=== PATIENT | male | born 1955 | race Caucasian/White ===

== ENCOUNTER 2019-11-13 10:11 | Outpatient (CLI) | payer BC, SELFPAY ==
[2019-11-13 10:28] LABS: Basophils Percent Auto 0.4 % (0.2-1.2); Eosinophils Absolute Auto 0.4 K/mm3 (0-0.3); Eosinophils Percent Auto 3.8 % (0-4.4); Hematocrit 44.5 % (42.0-52.0); Hemoglobin 14.3 g/dL (14.0-18.0); Immature Granulocyte Absolute 0.06 K/mm3 (0.00-0.031); Immature Granulocyte Percent A 0.6 % (0-0.5); Lymphocytes Absolute Auto 1.49 K/mm3 (0.9-3.2); Lymphocytes Percent Auto 15.8 % (18.3-44.2); Mean Corpuscular HGB Conc 32.1 g/dl (32-36); Mean Corpuscular Hemoglobin 28.7 pg (26-34); Mean Corpuscular Volume 89.2 fl (80-100); Mean Platelet Volume 8.9 fl (7.4-10.4); Monocytes Absolute Auto 0.7 K/mm3 (0.1-0.6); Monocytes Percent Auto 7.4 % (2.6-8.5); Neutrophils Absolute Auto 6.8 K/mm3 (1.3-6.7); Platelet Count Result 217 k/mm3 (150-375); Red Blood Count 4.99 M/mm3 (4.6-6.20); White Blood Count 9.4 K/mm3 (4.5-10.0)
[2019-11-13 10:39] LABS: Hemoglobin A1C 7.7 % (<5.7)
[2019-11-13 10:47] LABS: Alanine Aminotransferase 45 U/L (4-50); Albumin Level 4.3 g/dL (3.5-5.1); Alkaline Phosphatase 66 U/L (38-126); Aspartate Amino Transferase 41 U/L (17-59); Bilirubin,Total 0.7 mg/dL (0.2-1.3); Blood Urea Nitrogen 17 mg/dL (9-20); Calcium 9.4 mg/dL (8.4-10.2); Carbon Dioxide 31 mmol/L (22-30); Chloride 97 mmol/L (98-107); Cholesterol 164 mg/dL (0-200); Estimated Glomerular Filt Rate > 60; Glucose 178 mg/dL (75-110); HDL Direct 41 mg/dL; Potassium 5.1 mmol/L (3.4-5.0); Sodium 138 mmol/L (137-145); Triglycerides 78 mg/dL (<150)
[2019-11-13 10:58] LABS: LDL Cholesterol Direct 103 mg/dL
== END 2019-11-13 10:12 | disposition home or self-care (01) ==
LOC: ANHLAB 10:13
PROVIDERS: PCP Family Medicine; Visit Provider Nurse Practitioner Family
DX: E11.42 Type 2 diabetes mellitus with diabetic polyneuropathy (principal)
CPT/HCPCS: 36415; 80053; 80061; 83036; 85025

== ENCOUNTER 2020-01-16 10:42 | Outpatient (CLI) | payer BC, SELFPAY ==
[2020-01-16 11:12] LABS: Basophils Percent Auto 0.4 % (0.2-1.2); Eosinophils Absolute Auto 0.4 K/mm3 (0-0.3); Hematocrit 43.3 % (42.0-52.0); Hemoglobin 14.8 g/dL (14.0-18.0); Immature Granulocyte Absolute 0.05 K/mm3 (0.00-0.031); Immature Granulocyte Percent A 0.6 % (0-0.5); Lymphocytes Absolute Auto 1.42 K/mm3 (0.9-3.2); Lymphocytes Percent Auto 15.6 % (18.3-44.2); Mean Corpuscular HGB Conc 34.2 g/dl (32-36); Mean Corpuscular Hemoglobin 29.8 pg (26-34); Mean Corpuscular Volume 87.1 fl (80-100); Mean Platelet Volume 8.7 fl (7.4-10.4); Monocytes Absolute Auto 0.5 K/mm3 (0.1-0.6); Monocytes Percent Auto 5.9 % (2.6-8.5); Neutrophils Absolute Auto 6.7 K/mm3 (1.3-6.7); Neutrophils Percent Auto 73.5 % (45.5-73.1); Platelet Count Result 204 k/mm3 (150-375); Red Blood Count 4.97 M/mm3 (4.6-6.20); Red Cell Distribution Width 13.3 % (11.5-14.5); White Blood Count 9.1 K/mm3 (4.5-10.0)
[2020-01-16 11:20] LABS: Hemoglobin A1C 7.1 % (<5.7)
[2020-01-16 11:25] LABS: Alanine Aminotransferase 39 U/L (4-50); Albumin Level 4.2 g/dL (3.5-5.1); Alkaline Phosphatase 63 U/L (38-126); Aspartate Amino Transferase 37 U/L (17-59); Bilirubin,Total 0.6 mg/dL (0.2-1.3); Blood Urea Nitrogen 14 mg/dL (9-20); Calcium 9.2 mg/dL (8.4-10.2); Carbon Dioxide 31 mmol/L (22-30); Chloride 103 mmol/L (98-107); Cholesterol 168 mg/dL (0-200); Estimated Glomerular Filt Rate > 60; Glucose 127 mg/dL (75-110); HDL Direct 38 mg/dL; Sodium 138 mmol/L (137-145); Triglycerides 92 mg/dL (<150)
[2020-01-16 11:36] LABS: LDL Cholesterol Direct 110 mg/dL
[2020-01-16 11:43] LABS: Creatinine Urine 175.7 mg/dL
[2020-01-16 11:48] LABS: MALB Creatinine Ratio 8.1 mg/g (0-30); Microalbumin Urine Random 14.3 mg/L (0-16.7)
== END 2020-01-16 10:43 | disposition home or self-care (01) ==
PROVIDERS: PCP Family Medicine; Visit Provider Family Medicine
DX: E11.65 Type 2 diabetes mellitus with hyperglycemia (principal); I10 Essential (primary) hypertension
CPT/HCPCS: 36415; 80053; 80061; 82043; 83036; 85025

== ENCOUNTER 2020-07-20 10:12 | Outpatient (CLI) | payer BC, SELFPAY ==
[2020-07-20 10:53] LABS: Basophils Percent Auto 0.4 % (0.2-1.2); Eosinophils Absolute Auto 0.4 K/mm3 (0-0.3); Hematocrit 45.3 % (42.0-52.0); Hemoglobin 14.9 g/dL (14.0-18.0); Immature Granulocyte Absolute 0.06 K/mm3 (0.00-0.031); Immature Granulocyte Percent A 0.7 % (0-0.5); Lymphocytes Absolute Auto 1.24 K/mm3 (0.9-3.2); Lymphocytes Percent Auto 14.5 % (18.3-44.2); Mean Corpuscular HGB Conc 32.9 g/dl (32-36); Mean Corpuscular Hemoglobin 30.1 pg (26-34); Mean Corpuscular Volume 91.5 fl (80-100); Mean Platelet Volume 8.8 fl (7.4-10.4); Monocytes Absolute Auto 0.5 K/mm3 (0.1-0.6); Monocytes Percent Auto 6.2 % (2.6-8.5); Neutrophils Absolute Auto 6.3 K/mm3 (1.3-6.7); Neutrophils Percent Auto 73.2 % (45.5-73.1); Platelet Count Result 179 k/mm3 (150-375); Red Blood Count 4.95 M/mm3 (4.6-6.20); Red Cell Distribution Width 12.7 % (11.5-14.5); White Blood Count 8.6 K/mm3 (4.5-10.0)
[2020-07-20 11:04] LABS: Hemoglobin A1C 6.8 % (<5.7)
[2020-07-20 11:12] LABS: Alanine Aminotransferase 36 U/L (4-50); Albumin Level 4.4 g/dL (3.5-5.1); Alkaline Phosphatase 49 U/L (38-126); Anion Gap 8 mmol/L (8-16); Aspartate Amino Transferase 37 U/L (17-59); Bilirubin,Total 0.7 mg/dL (0.2-1.3); Blood Urea Nitrogen 15 mg/dL (9-20); Calcium 8.9 mg/dL (8.4-10.2); Carbon Dioxide 30 mmol/L (22-30); Chloride 101 mmol/L (98-107); Estimated Glomerular Filt Rate > 60; Glucose 137 mg/dL (75-110); Potassium 4.5 mmol/L (3.4-5.0); Sodium 139 mmol/L (137-145)
== END 2020-07-20 10:13 | disposition home or self-care (01) ==
PROVIDERS: PCP Family Medicine; Visit Provider Physician Assistant
DX: G62.9 Polyneuropathy, unspecified (principal); I10 Essential (primary) hypertension; E11.42 Type 2 diabetes mellitus with diabetic polyneuropathy
CPT/HCPCS: 36415; 80053; 83036; 85025

== ENCOUNTER → 2020-12-03 11:18 | Outpatient (CLI) | payer BC, SELFPAY ==
[2020-12-04 08:28] LABS: SARS-CoV-2 RNA PCR Positive
== END ==
PROVIDERS: PCP Family Medicine; Visit Provider Physician Assistant
DX: U07.1 COVID-19 (principal)
CPT/HCPCS: C9803; U0003; U0005

== ENCOUNTER 2022-05-04 08:47 | Outpatient (CLI) | payer MEDICARE, SELFPAY ==
--- NOTE | ~2022-05-04 | XR_ITS ---
XR foot LT min 3V DATE: 05/04/2022 10:01 INDICATION: Pain at right metatarsals TECHNIQUE: 3 views COMPARISON: None FINDINGS: Mild osteoarthritis at the first metatarsophalangeal joint. No fracture, dislocation, periosteal reaction or bone destruction. IMPRESSION: Mild osteoarthritis at first metatarsophalangeal joint Reviewed, dictated and finalized at location B.
--- NOTE | ~2022-05-04 | XR_ITS ---
XR foot RT min 3V DATE: 05/04/2022 10:01 INDICATION: Right foot metatarsal area pain TECHNIQUE: 3 views COMPARISON: None FINDINGS: Mild osteoarthritis at the first metatarsophalangeal joint. No recent fracture or dislocation, periosteal reaction or bone destruction. Slight posterior and plantar calcaneal enthesopathy. IMPRESSION: Mild osteoarthritis at first metatarsophalangeal joint Reviewed, dictated and finalized at location B.
--- NOTE | 2022-05-04 08:52 | EST_ITS ---
Patient Info Name: Bryan Serrano Age: 67 years : 1955 Gender: Male Ht: 74 in Wt: 295 lbs BSA: 2.69 m2 Exam Date: 05/04/2022 9:10 AM Exam Location: [facility] Stress Patient Status: Outpatient Admit Date: 05/04/2022 Staff Ordering Physician: Aydin Martins MD Attending Provider: Aydin Martins MD Exercise Technologist: Zuleyka Barajas RDCS Exercise Physician: Jose Del Angel DO Exam Type: CA stress test treadmill Study Info Indications R06.09 - Other forms of dyspnea A treadmill exercise stress test was performed. Summary 1. 1. Negative Octavio exercise stress test for ischemic ST changes by ECG criteria. 2. 2. Poor functional capacity, achieving 4 METs of workload. 3. 3. Baseline hypertension with hypertensive response to exercise. 4. 4. Rapid HR response to exercise. 5. 5. Appropriate HR recovery at 1 minute post exercise. 6. 6. No imaging with stress testing. 7. 7. Patient informed of the above results. Protocol: Octavio Stress ECG Details Stage: REST Duration (min): 3 min : 22 sec Speed (mph): 0.0 Grade (%): 0 HR (bpm): 112 SBP (mmHg): 143 DBP (mmHg): 71 METS: --- Stage: REST Duration (min): 6 min : 46 sec Speed (mph): 0.0 Grade (%): 0 HR (bpm): 110 SBP (mmHg): 143 DBP (mmHg): 71 METS: --- Stage: STAGE 1 Duration (min): 1 min : 0 sec Speed (mph): 1.7 Grade (%): 10 HR (bpm): 127 SBP (mmHg): 143 DBP (mmHg): 71 METS: --- Stage: STAGE 1 Duration (min): 2 min : 0 sec Speed (mph): 1.7 Grade (%): 10 HR (bpm): 139 SBP (mmHg): 143 DBP (mmHg): 71 METS: --- Stage: STAGE 1 Duration (min): 3 min : 0 sec Speed (mph): 1.7 Grade (%): 10 HR (bpm): 145 SBP (mmHg): 189 DBP (mmHg): 54 METS: --- Stage: RECOVERY Duration (min): 0 min : 59 sec Speed (mph): 0.0 Grade (%): 0 HR (bpm): 142 SBP (mmHg): 216 DBP (mmHg): 75 METS: --- Stage: RECOVERY Duration (min): 1 min : 59 sec Speed (mph): 0.0 Grade (%): 0 HR (bpm): 122 SBP (mmHg): 216 DBP (mmHg): 75 METS: --- Stage: RECOVERY Duration (min): 2 min : 59 sec Speed (mph): 0.0 Grade (%): 0 HR (bpm): 115 SBP (mmHg): 190 DBP (mmHg): 72 METS: --- Stage: RECOVERY Duration (min): 3 min : 59 sec Speed (mph): 0.0 Grade (%): 0 HR (bpm): 116 SBP (mmHg): 190 DBP (mmHg): 72 METS: --- Stage: RECOVERY Duration (min): 4 min : 59 sec Speed (mph): 0.0 Grade (%): 0 HR (bpm): 110 SBP (mmHg): 152 DBP (mmHg): 71 METS: --- Stage: RECOVERY Duration (min): 5 min : 59 sec Speed (mph): 0.0 Grade (%): 0 HR (bpm): 111 SBP (mmHg): 152 DBP (mmHg): 71 METS: --- Stage: RECOVERY Duration (min): 6 min : 45 sec Speed (mph): 0.0 Grade (%): 0 HR (bpm): 109 SBP (mmHg): 144 DBP (mmHg): 71 METS: --- Rest HR: 110 bpm Peak HR:
== END 2022-05-04 08:48 | disposition home or self-care (01) ==
PROVIDERS: PCP Family Medicine; Visit Provider Family Medicine
DX: M77.41 Metatarsalgia, right foot (principal); M19.072 Primary osteoarthritis, left ankle and foot; M19.071 Primary osteoarthritis, right ankle and foot; R06.09 Other forms of dyspnea
CPT/HCPCS: 73630; 93017

== ENCOUNTER 2022-07-12 15:53 | Emergency (ER) | payer MEDICARE, SELFPAY ==
--- NOTE | ~2022-07-12 | XR_ITS ---
EXAMINATION: XR foot RT min 3V DATE: 07/12/2022 16:18 INDICATION: Right foot pain TECHNIQUE: Dorsoplantar, lateral, and 2 oblique views of the right foot were obtained. COMPARISON: 05/04/2022 FINDINGS: There is moderate osteoarthritis at the first metatarsophalangeal joint and in multiple int erphalangeal joints. Bone alignment is normal. No fracture is identified. The soft tissues are unrema rkable. IMPRESSION: 1. No acute osseous abnormality. Reviewed, dictated and finalized at location A.
[2022-07-12 16:20] VITALS: BP 138/73; PULSE 97; RESP 20; TEMP 36.8; O2SAT 97
[2022-07-12 16:23] VITALS: BP 138/73; PULSE 97; RESP 20; TEMP 36.8; O2SAT 97
--- NOTE | 2022-07-12 17:39 | ED.LOWEXIN ---
HPI - Extremity Injury (Lower) General Chief Complaint: Extremity Injury, Lower Stated Complaint: Rt Foot Pain Due to Fall Source: patient Mode of arrival: ambulatory History of Present Illness HPI Narrative: This is a 67-year-old male who presented to urgent care with complaints of right great toe pain. According to patient he fell off a ladder on Sunday and woke up this morning with swollen red toe with pus drainage coming from the nailbed. Patient notes that he was unable to sleep last night due to pain. Patient has a history of diabetic spoke with patient's primary care physician before I&D completed. Patient will have to follow-up closely with his primary care physician to avoid a diabetic ulcer. Patient's primary care physician agreed to an I&D and to closely monitor patient's status. Patient has agreed to follow-up with his primary care physician after the procedure. The patient denies SOB, CP, palpitation, extremity numbness, lightheadedness, dizziness, constipation, diarrhea, chills, or fever. Related Data Home Medications Medication Instructions Recorded Confirmed metformin 500 mg tablet 500 mg PO BID 04/24/22 07/12/22 omeprazole 20 mg tablet,delayed 20 mg PO DAILY 04/24/22 07/12/22 release semaglutide 0.25 mg or 0.5 mg (2 0.25 mg subcut WEEKLY 04/24/22 07/12/22 mg/1.5 mL) subcutaneous pen injector (Ozempic) insulin degludec 200 unit/mL (3 200 unit subcut DAILY 07/12/22 07/12/22 mL) subcutaneous pen (Tresiba FlexTouch U-200 insulin) lisinopril 20 1 tablet PO DAILY 07/12/22 07/12/22 mg-hydrochlorothiazide 12.5 mg tablet Allergies Allergy/AdvReac Type Severity Reaction Status Date / Time Penicillins AdvReac Mild Rash Verified 07/12/22 16:20 Review of Systems Review of Systems: A 14 organ system Review of Systems was performed and pertinent positives included in the HPI, otherwise remaining ROS is negative. [facility] Past Medical History Medical History (Updated 07/12/22 @ 17:39 by QUAN Ragsdale-C) BMI 37.0-37.9, adult Chronic low back pain with bilateral sciatica Colon cancer screening COVID-19 (12/03/20) Dyspnea on exertion exercise stress test was negative for ischemia with poor functional capacity on 05/04/2022. Ganglion cyst of right foot GERD (gastroesophageal reflux disease) Hypersomnia Metatarsalgia of both feet X-ray of both feet on 05/04/2022 reveals mild osteoarthritis of the 1st MTP joint with small posterior calcaneal heel spurs on the right foot. Mixed hyperlipidemia Total cholesterol 188, triglycerides 95, HDL 56 and LDL 106 on 03/29/2021 Mood swings Neuropathy Nocturia Umbilical hernia Social History Social History Social History: Smoking status: Former smoker Tobacco type: cigarettes Second hand tobacco smoke exposure: No Smoking end date: 10/01/97 Alcohol intake: never Substance use: never Substance use type: does not use Gender identity (if verbalized by the patient): Male Sexual Orientation (if Verbalized by the Patient): Straight or Heterosexual Exam Narrative: GENERAL: This is a well-nourished, well-developed patient, in no apparent distress. HEAD: normocephalic, atraumatic. EYES: PERRL. Sclera clear/white. Vision is grossly intact. EARS: External ears normal, auditory canals clear and without drainage, TMs normal without perforation. Hearing grossly intact. NOSE: External nose normal with no obvious nasal discharge, nares without redness, no rhinorrhea. THROAT: Mucous membranes moist, posterior pharynx clear. NECK: Neck supple, non-tender without lymphadenopathy, masses or thyromegaly. CARDIOVASCULAR: Regular rate and rhythm without murmurs, gallops, or rubs. RESPIRATORY: Clear to auscultation. Breath sounds equal bilaterally. No wheezes, rales, or rhonchi. GASTROINTESTINAL: Abdomen soft, non-tender, nondistended. Bowel sounds are active. No hepato-splenomegaly, or
== END 2022-07-12 17:51 | disposition home or self-care (01) ==
PROVIDERS: Emergency Provider Nurse Practitioner; PCP Family Medicine
DX: M79.674 Pain in right toe(s) (principal); L03.031 Cellulitis of right toe; Z87.891 Personal history of nicotine dependence; Z86.16 Personal history of COVID-19; K21.9 Gastro-esophageal reflux disease without esophagitis; E78.2 Mixed hyperlipidemia; E11.9 Type 2 diabetes mellitus without complications
CPT/HCPCS: 10060; 73630; 99213; G0463

== ENCOUNTER 2022-08-20 15:46 | Emergency (ER) | payer MEDICARE, SELFPAY ==
--- NOTE | ~2022-08-20 | CT_ITS ---
EXAMINATION: CT abdomen pelvis wo con DATE: 08/20/2022 18:44 INDICATION: left flank pain TECHNIQUE: Computed tomography (CT) of the abdomen and pelvis was performed without intravenous contr ast. Automated exposure control and iterative reconstruction technique were employed. The dose-length product was 1151.69 mGy-cm. COMPARISON: None. FINDINGS: Lower thorax: Bibasilar scar/atelectasis. Liver: Diffusely fatty infiltrated and enlarged. Biliary/Gallbladder: Gallbladder is normal. No bile duct dilation. Pancreas: No mass or duct dilation. Spleen: Normal. Adrenals:No mass. Kidneys: No mass, stone, or hydronephrosis. GI tract: No small or large bowel dilation. Normal appendix. Extensive diverticulosis. Subtle pericol onic fat stranding along the anterior aspect of the proximal sigmoid in the left lower quadrant. Mesentery/Peritoneum: No ascites, mass, or free air. Retroperitoneum: No mass. Pelvis: Pelvic organs are within normal limits. Soft Tissues: Uncomplicated umbilical and bilateral inguinal fat-containing hernias. Bones: No acute osseous finding. IMPRESSION: Subtle perisigmoid inflammatory change in the left lower quadrant may reflect early/mild diverticulit is in the appropriate clinical context. Hepatomegaly and steatosis. Otherwise, no acute abdominopelvi c process detected Reviewed, dictated and finalized at location K. INGOT MOLDER IMPRESSION: Subtle perisigmoid inflammatory change in the left lower quadrant may reflect e jacobo/mild diverticulitis in the appropriate clinical context. Hepatomegaly and steatosis. Otherwise, no acute abdominopelvic process detected
--- NOTE | ~2022-08-20 | XR_ITS ---
EXAMINATION: XR chest 2V Exam Date/Time: 08/20/2022 16:10 RECREATION DIRECTOR HISTORY: shortness of breath, WITH STABBING PAIN TO CHEST Comparison: None available. RESULT: Lines, tubes, and devices: None. Lungs and pleura: Mild senescent change in left mid and lower lung atelectasis/scarring. Cardiomediastinal silhouette: Unremarkable. Other: No acute osseous or upper abdominal finding. IMPRESSION: No acute cardiopulmonary process. Reviewed, dictated and finalized at location K. EATION DIRECTOR
[2022-08-20 15:51] VITALS: BP 126/69; PULSE 114; RESP 18; TEMP 36.9; O2SAT 100
[2022-08-20 16:00] VITALS: BP 169/93; PULSE 104; RESP 20; O2SAT 100
[2022-08-20 16:04] VITALS: PULSE 108
--- NOTE | 2022-08-20 16:04 | ECG_ITS ---
Measurements Intervals [place] Rate: 108 P: 52 [place]: 153 QRS: -79 QRSD: 128 T: 31 QT: 327 QTc: 439 Interpretive Statements SINUS TACHYCARDIA RIGHT BUNDLE BRANCH BLOCK LEFT ANTERIOR FASCICULAR BLOCK ABNORMAL ECG NO PREVIOUS ECG AVAILABLE FOR COMPARISON Electronically Signed On 08-20-2022 17:06:35 BORDER INSPECTOR by Jose Del Angel D.O.
[2022-08-20 16:05] VITALS: O2SAT 96
--- NOTE | 2022-08-20 16:12 | PC.NURSE ---
Patient reports he started to feel short of breath around 1300 today while at [facility]. He reports he was cleaning up a little bit at [employer] when it started. Patient reports hx of a spontaneous collapsed lung when he was in his 20s.
[2022-08-20 16:14] LABS: Basophils Absolute Auto 0.1 K/mm3 (0.0-0.1); Basophils Percent Auto 0.3 % (0.2-1.2); Eosinophils Absolute Auto 0.4 K/mm3 (0-0.3); Eosinophils Percent Auto 2.8 % (0-4.4); Hematocrit 42.7 % (42.0-52.0); Hemoglobin 14.3 g/dL (14.0-18.0); Immature Granulocyte Absolute 0.11 K/mm3 (0.00-0.031); Immature Granulocyte Percent A 0.7 % (0-0.5); Lymphocytes Absolute Auto 2.03 K/mm3 (0.9-3.2); Lymphocytes Percent Auto 13.4 % (18.3-44.2); Mean Corpuscular HGB Conc 33.5 g/dl (32-36); Mean Corpuscular Volume 89.5 fl (80-100); Mean Platelet Volume 8.9 fl (7.4-10.4); Monocytes Percent Auto 6.3 % (2.6-8.5); Neutrophils Absolute Auto 11.6 K/mm3 (1.3-6.7); Neutrophils Percent Auto 76.5 % (45.5-73.1); Platelet Count Result 239 k/mm3 (150-375); Red Blood Count 4.77 M/mm3 (4.6-6.20); Red Cell Distribution Width 13.2 % (11.5-14.5); White Blood Count 15.2 K/mm3 (4.5-10.0)
[2022-08-20 16:30] LABS: Alanine Aminotransferase 34 U/L (6-50); Albumin Level 4.4 g/dL (3.5-5.1); Alkaline Phosphatase 91 U/L (38-126); Anion Gap 10 mmol/L (8-16); Aspartate Amino Transferase 35 U/L (17-59); Bilirubin,Total 0.5 mg/dL (0.2-1.3); Blood Urea Nitrogen 18 mg/dL (9-20); Calcium 9.4 mg/dL (8.4-10.2); Carbon Dioxide 26 mmol/L (22-30); Chloride 102 mmol/L (98-107); Estimated CRCL calculation 85 ml/min; Estimated Glomerular Filt Rate > 60; Glucose 163 mg/dL (65-110); Potassium 4.2 mmol/L (3.4-5.0); Sodium 138 mmol/L (137-145)
--- NOTE | 2022-08-20 17:08 | ED.GENADULT ---
HPI - General Adult General Chief complaint: Shortness of Breath/Dyspnea Stated complaint: shortness of breath with left side and back pain Time Seen by Provider: 08/20/22 16:40 History of Present Illness HPI narrative: 67-year-old male presenting to the emergency department for evaluation of left lower back pain. Patient states he was helping out at a congregation dinner when he sat down and having onset of the left lower back pain. Patient states when the pains that he also did not feel well . Patient denies any associated chest pain. Patient states he does not feel short of breath at this time. Patient reports he did have a history of a spontaneous pneumo on the right approximately 20 years ago. Related Data Home Medications Medication Instructions Recorded Confirmed metformin 500 mg tablet 500 mg PO BID 04/24/22 07/12/22 omeprazole 20 mg tablet,delayed 20 mg PO DAILY 04/24/22 07/12/22 release semaglutide 0.25 mg or 0.5 mg (2 0.25 mg subcut WEEKLY 04/24/22 07/12/22 mg/1.5 mL) subcutaneous pen injector (Ozempic) insulin degludec 200 unit/mL (3 200 unit subcut DAILY 07/12/22 07/12/22 mL) subcutaneous pen (Tresiba FlexTouch U-200 insulin) lisinopril 20 1 tablet PO DAILY 07/12/22 07/12/22 mg-hydrochlorothiazide 12.5 mg tablet Allergies Allergy/AdvReac Type Severity Reaction Status Date / Time Penicillins AdvReac Mild Rash Verified 08/20/22 15:47 Review of Systems Review of Systems: CONSTITUTIONAL: Denies fever, chills, or sweats. EYES: Denies visual changes, redness, or discharge. ENT: Denies rhinorrhea, congestion, sore throat, or otalgia. CARDIOVASCULAR: Denies chest pain, palpitations, or edema. RESPIRATORY: Denies cough or dyspnea. GASTROINTESTINAL: Left flank pain, see HPI GENITOURINARY: Denies dysuria or hematuria. SKIN: Denies rash or itching. MUSCULOSKELETAL: Left back pain NEUROLOGIC: Denies headache, numbness, or weakness. [facility] Past Medical History Medical History (Updated 08/20/22 @ 21:44 by Tab Joyner MD) BMI 37.0-37.9, adult Chronic low back pain with bilateral sciatica Colon cancer screening COVID-19 (12/03/20) Dyspnea on exertion exercise stress test was negative for ischemia with poor functional capacity on 05/04/2022. Ganglion cyst of right foot GERD (gastroesophageal reflux disease) Hypersomnia Metatarsalgia of both feet X-ray of both feet on 05/04/2022 reveals mild osteoarthritis of the 1st MTP joint with small posterior calcaneal heel spurs on the right foot. Mixed hyperlipidemia Total cholesterol 188, triglycerides 95, HDL 56 and LDL 106 on 03/29/2021 Mood swings Neuropathy Nocturia Umbilical hernia Social History Social History Social History: Smoking status: Former smoker Tobacco type: cigarettes Second hand tobacco smoke exposure: No Smoking end date: 10/01/97 Alcohol intake: never Substance use: never Substance use type: does not use Gender identity (if verbalized by the patient): Male Sexual Orientation (if Verbalized by the Patient): Straight or Heterosexual Exam Narrative: APPEARANCE: Well appearing, no pain, no distress, well-nourished. HEAD: normocephalic, atraumatic. EYES: PERRLA/EOMI, conjunctivae clear. NOSE: Normal no drainage THROAT: Pharynx clear, no exudate. NECK: Supple. No adenopathy, no masses. RESPIRATORY: Airway patent, respirations nonlabored. Clear to auscultation bilaterally, no rales, rhonchi, wheezing. CARDIOVASCULAR: Regular rate and rhythm without murmurs rubs or gallops. ABDOMINAL: Left CVA tenderness to palpation. No significant left lower quadrant tenderness to palpation MUSCULOSKELETAL: Moves all extremities. Strength/ROM intact, No edema, No calf tenderness. NEURO: Alert. Cranial nerves II through XII intact. Grossly intact SKIN: Warm, dry. Normal Color Course Course Emergency Course: Patient was afebrile with a leukocytosis of
[2022-08-20] MEDS: SODIUM CHLORIDE 0.9% IV 1,000 ML 999 ML IV CONT (17:34)
[2022-08-20 17:45] VITALS: BP 131/79; PULSE 98; RESP 17; O2SAT 99
[2022-08-20 18:30] VITALS: BP 129/74; PULSE 98; RESP 17; O2SAT 99
[2022-08-20 18:56] LABS: Appearance Urine Clear (Clear); Bilirubin Urine Negative (Negative); Blood Urine Negative (Negative); Color Urine Yellow (Yellow); Glucose Urine UA Trace mg/dL (Negative); Ketones Urine Negative (Negative); Leukocyte Esterase Ur Negative LEU/UL (Negative); Nitrate Urine Negative (Negative); Protein Urine Negative (Negative); Specific Grav Ur 1.025 (1.001-1.035); Urobilinogen Urine 0.2 mg/dL (<2.0)
[2022-08-20 18:59] LABS: Mucus Urine Rare /lpf; RBC Urine 0-2 /hpf (0-2); Squamous Epithelial Cell Urine Rare /hpf (Few); WBC Urine 0-3 /hpf
[2022-08-20 19:00] LABS: Add Urine Microscopic? YES
[2022-08-20] MEDS: AMOXICILLIN/CLAVULANATE K 875-125 MG TAB 1 TABLET PO (19:19)
== END 2022-08-20 19:24 | disposition home or self-care (01) ==
PROVIDERS: Emergency Provider Emergency Medicine; PCP Family Medicine
DX: K57.92 Diverticulitis of intestine, part unspecified, without perforation or abscess without bleeding (principal); E78.2 Mixed hyperlipidemia; K21.9 Gastro-esophageal reflux disease without esophagitis; G62.9 Polyneuropathy, unspecified; Z86.16 Personal history of COVID-19; Z87.891 Personal history of nicotine dependence; Z79.84 Long term (current) use of oral hypoglycemic drugs; Z79.4 Long term (current) use of insulin; Z79.85 Long-term (current) use of injectable non-insulin antidiabetic drugs; R16.0 Hepatomegaly, not elsewhere classified; K76.0 Fatty (change of) liver, not elsewhere classified; R00.0 Tachycardia, unspecified; I45.2 Bifascicular block
CPT/HCPCS: 36415; 71046; 74176; 80053; 81001; 85025; 93005; 96360; 99284; A9270; J7030

== ENCOUNTER 2023-03-22 09:39 | Outpatient (CLI) | payer MEDICARE, SELFPAY ==
[2023-03-22 10:12] LABS: Basophils Absolute Auto 0.1 K/mm3 (0.0-0.1); Basophils Percent Auto 0.6 % (0.2-1.2); Eosinophils Absolute Auto 0.4 K/mm3 (0-0.3); Eosinophils Percent Auto 3.7 % (0-4.4); Hematocrit 41.6 % (42.0-52.0); Hemoglobin 13.6 g/dL (14.0-18.0); Immature Granulocyte Absolute 0.15 K/mm3 (0.00-0.031); Immature Granulocyte Percent A 1.3 % (0-0.5); Lymphocytes Absolute Auto 2.29 K/mm3 (0.9-3.2); Mean Corpuscular HGB Conc 32.7 g/dl (32-36); Mean Corpuscular Hemoglobin 28.9 pg (26-34); Mean Corpuscular Volume 88.3 fl (80-100); Mean Platelet Volume 8.6 fl (7.4-10.4); Monocytes Absolute Auto 0.7 K/mm3 (0.1-0.6); Neutrophils Absolute Auto 7.8 K/mm3 (1.3-6.7); Neutrophils Percent Auto 68.4 % (45.5-73.1); Platelet Count Result 225 k/mm3 (150-375); Red Blood Count 4.71 M/mm3 (4.6-6.20); Red Cell Distribution Width 13.2 % (11.5-14.5); White Blood Count 11.5 K/mm3 (4.5-10.0)
[2023-03-22 10:21] LABS: Appearance Urine Clear (Clear); Bacteria Urine None Seen /hpf; Bilirubin Urine Negative (Negative); Blood Urine Negative (Negative); Color Urine Yellow (Yellow); Glucose Urine UA 1+ mg/dL (Negative); Ketones Urine Trace mg/dL (Negative); Leukocyte Esterase Ur 1+ LEU/UL (NEGATIVE); Nitrate Urine Negative (Negative); Non Pathogenic Casts 0-2; Protein Urine Negative (Negative); RBC Urine 0-2 /hpf (0-2); Specific Grav Ur 1.024 (1.001-1.035); Squamous Epithelial Cell Urine None seen /hpf (Few); pH Urine 5.5 (5.0-9.0)
[2023-03-22 10:45] LABS: Add Urine Microscopic? YES
[2023-03-22 12:17] LABS: Creatinine Urine 169.8 mg/dL
[2023-03-22 12:21] LABS: MALB Creatinine Ratio 9.7 mg/g (0-30); Microalbumin Urine Random 16.4 mg/L (0-16.7)
[2023-03-22 12:39] LABS: Alanine Aminotransferase 48 U/L (6-50); Albumin Level 4.3 g/dL (3.5-5.1); Alkaline Phosphatase 87 U/L (38-126); Anion Gap 4 mmol/L (8-16); Aspartate Amino Transferase 41 U/L (17-59); Bilirubin,Total 0.5 mg/dL (0.2-1.3); Blood Urea Nitrogen 18 mg/dL (9-20); Carbon Dioxide 27 mmol/L (22-30); Chloride 106 mmol/L (98-107); Cholesterol 161 mg/dL (0-200); Estimated Glomerular Filt Rate > 60; Glucose 165 mg/dL (65-110); HDL Direct 36 mg/dL; Potassium 4.3 mmol/L (3.4-5.0); Sodium 137 mmol/L (137-145); Triglycerides 130 mg/dL (<150)
[2023-03-22 12:52] LABS: LDL Cholesterol Direct 102 mg/dL
[2023-03-22 13:46] LABS: Folic Acid 9.3 ng/mL (2.76->20)
== END 2023-03-22 09:40 | disposition home or self-care (01) ==
PROVIDERS: PCP Family Medicine; Visit Provider Family Medicine
DX: E11.65 Type 2 diabetes mellitus with hyperglycemia (principal); E11.42 Type 2 diabetes mellitus with diabetic polyneuropathy; E78.2 Mixed hyperlipidemia; R06.09 Other forms of dyspnea; R35.1 Nocturia
CPT/HCPCS: 36415; 80048; 80061; 80076; 81001; 82043; 82607; 82746; 84153; 84443; 85025

== ENCOUNTER 2023-11-02 16:02 | Outpatient (CLI) | payer MEDICARE, SELFPAY ==
--- NOTE | ~2023-11-02 | XR_ITS ---
XR lumbar spine min 4V DATE: 11/02/2023 16:25 INDICATION: Low back pain, left sciatica TECHNIQUE: AP, lateral, coned lateral lumbosacral and bilateral oblique views COMPARISON: None FINDINGS: There is prominent degenerative change at the apophyseal joints at L4-5 in particular, with associated grade 1 anterolisthesis at L4-5. Otherwise there is normal alignment of the lumbar spine. No fracture or bone destruction, spondylolys is or spondylolisthesis. The lumbar pedicles are intact. Severe degenerative disc disease at L5-S1. Mild degenerative disc disease at the lumbar interspaces. The sacroiliac joints are intact. Abdominal aortic calcification and iliac artery calcification. IMPRESSION: Grade 1 anterolisthesis at L4-5 due to degenerative changes apophyseal joints Severe degenerative disc disease at L5-S1 Reviewed, dictated and finalized at location B. OR MECHANICAL PROJECT ENGINEER IMPRESSION: Grade 1 anterolisthesis at L4-5 due to degenerative changes apophys eal joints Severe degenerative disc disease at L5-S1
== END 2023-11-02 16:03 | disposition home or self-care (01) ==
LOC: ANHIMG 16:05
PROVIDERS: PCP Family Medicine; Visit Provider Family Medicine
DX: M51.37 Other intervertebral disc degeneration, lumbosacral region (principal); M54.42 Lumbago with sciatica, left side; M54.41 Lumbago with sciatica, right side; G89.29 Other chronic pain
CPT/HCPCS: 72110

== ENCOUNTER 2024-02-12 08:46 | Outpatient (CLI) | payer MEDICARE, SELFPAY ==
--- NOTE | 2024-02-18 14:52 | WPDHOMESLEEP ---
Sleep Study - Home Unattended Date of Study: 02/12/24 Ordering Provider: Aydin Martins MD Interpreting Provider: Lakisha Leal, DO Home Sleep Study Type: Watch PAT Height: 1.88 m Weight: 136.531 kg Body Mass Index: 38.6 Neck Circumference (inches): 21 [place]: 20 Reason for Sleep Study Hypersomnia Sleep History The patient is a 68-year-old male with hypertension, diabetes, insomnia, former tobacco use and obesity that had a sleep study ordered by his primary care physician for evaluation of sleep apnea. The patient occasionally awakens from sleep short of breath. He frequently awakens at night with heartburn, belching or cough. He frequently snores and is frequently loud enough that others complain. He rarely has trouble sleeping when he has a cold. He occasionally wakes up gasping for air throughout the night. He occasionally has breathing problems at night observed by himself or others. He denies sweating excessively at night. He denies having heart palpitations or irregular heartbeats during the night. He constantly falls asleep during the day but never while driving. He rarely experiences loss of muscle tone when extremely emotional. He denies having trouble at school or work due to sleepiness. He denies feeling unable to move while waking up or falling asleep. He denies experiencing vivid dreamlike scenes upon awakening or falling asleep. He denies feeling afraid of going to sleep. He denies having nightmares. He rarely remembers his dreams. He constantly has thoughts racing through his mind. He frequently feels sad, depressed and anxious. He occasionally has muscular tension. He denies noticing parts of his body jerk. He denies kicking during the night. He rarely has crawling and aching feelings in his legs and rarely has leg pain during the night. He denies grinding his teeth during sleep and denies awakening with morning jaw pain. He is frequently bothered by pain during the day and frequently awakened by pain during the night. He constantly wakes up feeling stiff in the morning. He constantly wakes up with sore or achy muscles. He constantly wakes up with pain in the neck, spine and other joints. He goes to bed at 9:00 p.m. on both weekdays and weekends. It takes him 1 hour to fall asleep. He wakes up 3-4 times throughout the night for unknown reasons. He will watch television until he is able to fall asleep. He typically takes him 1 hour to fall back asleep. He wakes up between 7-8 a.m. on both weekdays and weekends. He typically gets 3-4 hours of sleep per night. He will stay in bed for few minutes after waking up in the morning. He currently lives with his . He denies consuming any caffeinated beverages within 2 hours of bedtime. He denies engaging in physical exercise before bedtime. He will watch television before falling asleep. He will take naps in the afternoon or the evening but they are not refreshing. He consumes 1 cup of coffee in the morning. He is a former smoker. He denies alcohol and recreational drug use. [facility] Past Medical History Medical History At low risk for fall BMI 37.0-37.9, adult BMI 38.0-38.9,adult Cellulitis Chronic low back pain with bilateral sciatica X-ray of the lumbar spine on 11/02/2023 reveals severe degenerative disc disease at L5-S1. Colon cancer screening COVID-19 (12/03/20) Dyspnea on exertion exercise stress test was negative for ischemia with poor functional capacity on 05/04/2022. Encounter for prostate cancer screening Ganglion cyst of right foot GERD (gastroesophageal reflux disease) Hypersomnia Metatarsalgia of both feet X-ray of both feet on 05/04/2022 reveals mild osteoarthritis of the 1st MTP joint with small posterior calcaneal heel spurs on the right foot. Mixed hyperlipidemia Total cholesterol 188, triglycerides 95, HDL 56 and LDL 106 on 03/29/2021. cholesterol 161, triglycer
[2024-02-18 14:59] VITALS: BMI 38.6
== END 2024-02-14 11:58 | disposition home or self-care (01) ==
LOC: ANHCSM 08:46
PROVIDERS: PCP Family Medicine; Visit Provider Family Medicine
DX: G47.33 Obstructive sleep apnea (adult) (pediatric) (principal); G47.10 Hypersomnia, unspecified
CPT/HCPCS: 95800

== ENCOUNTER 2024-03-10 10:19 | Outpatient (CLI) | payer MEDICARE, SELFPAY ==
--- NOTE | ~2024-03-10 | US_ITS ---
US art doppler w press LE BI INDICATION: Peripheral arterial disease TECHNIQUE: Segmental pressures and plethysmographic and Doppler waveforms of the brachial and lower e xtremity arteries were obtained. COMPARISON: None. FINDINGS: Right and left brachial artery pressures of 156 mm Hg and 155 mm Hg, respectively, are concordant (no rmal difference <= 30 mmHg). There is mixed biphasic and triphasic flow throughout the lower extremit y arteries. The right ankle-brachial index (EZRA) is 1 (normal >= 0.9-1.0). The right great toe-brachial index (TB I) is 0.6 (normal >= 0.60). The left EZRA is 1.04. The left TBI is 0.75. IMPRESSION: 1. Normal lower extremity arterial Doppler. Reviewed, dictated and finalized at location B.
== END 2024-03-10 10:20 | disposition home or self-care (01) ==
LOC: CHSIMG 10:21
PROVIDERS: Visit Provider Podiatrist Foot & Ankle Surgery
DX: I73.9 Peripheral vascular disease, unspecified (principal)
CPT/HCPCS: 93923

== ENCOUNTER 2024-03-20 17:16 | Observation (INO) | payer MEDICARE, SELFPAY ==
[2024-03-20] VITALS (8 sets, daily range): BP systolic 119–155; BP diastolic 77–94; PULSE 107–136; RESP 16–28; TEMP 37.3; O2SAT 93–98
--- NOTE | ~2024-03-20 | XR_ITS ---
EXAMINATION: XR chest 2V DATE: 03/20/2024 17:48 INDICATION: Shortness of breath TECHNIQUE: frontal and lateral views of the chest were obtained. COMPARISON: Chest radiograph and CT abdomen and pelvis dated 08/20/2022 FINDINGS: Persistent opacities at the anterior left lung base and favor lingular atelectasis/scarring over pneu monia. No new airspace opacities, pulmonary edema, pleural effusion or pneumothorax. The cardiomedias tinal silhouette is normal. Moderate thoracic spondylosis with bridging osteophytes at multiple level s consistent with diffuse idiopathic skeletal hyperostosis (DISH). IMPRESSION: 1. Chronic opacities at the anterior left lung base and favor lingular atelectasis/scarring over pneu monia. Reviewed, dictated and finalized at location A. IMPRESSION: 1. Chronic opacities at the anterior left lung base and favor lingular atelecta sis/scarring over pneumonia.
--- NOTE | 2024-03-20 17:18 | ECG_ITS ---
Test Date: 2024-03-20 17:24:54 Measurements Intervals [place] Rate: 113 P: 50 VT: 159 QRS: -88 QRSD: 121 T: 56 QT: 340 QTc: 467 Interpretive Statements SINUS TACHYCARDIA MARKED LEFT AXIS DEVIATION [QRS AXIS < -30] RIGHT BUNDLE BRANCH BLOCK [120+ ms QRS DURATION, UPRIGHT V1, 40+ ms S IN I/aVL/V4/V5/V6] ABNORMAL ECG No previous ECG available for comparison Electronically Signed On 03-21-2024 10:50:20 CDT by Oziel Lyn M.D.
[2024-03-20 17:38] LABS: Basophils Percent Auto 0.4 % (0.2-1.2); Eosinophils Absolute Auto 0.4 K/mm3 (0-0.3); Eosinophils Percent Auto 4.2 % (0-4.4); Hematocrit 40.6 % (42.0-52.0); Hemoglobin 13.6 g/dL (14.0-18.0); Immature Granulocyte Absolute 0.07 K/mm3 (0.00-0.031); Immature Granulocyte Percent A 0.8 % (0-0.5); Lymphocytes Absolute Auto 1.62 K/mm3 (0.9-3.2); Lymphocytes Percent Auto 19.3 % (18.3-44.2); Mean Corpuscular HGB Conc 33.5 g/dl (32-36); Mean Corpuscular Hemoglobin 28.5 pg (26-34); Mean Corpuscular Volume 84.9 fl (80-100); Mean Platelet Volume 8.5 fl (7.4-10.4); Monocytes Absolute Auto 1.1 K/mm3 (0.1-0.6); Monocytes Percent Auto 12.7 % (2.6-8.5); Neutrophils Absolute Auto 5.3 K/mm3 (1.3-6.7); Neutrophils Percent Auto 62.6 % (45.5-73.1); Platelet Count Result 196 k/mm3 (150-375); Red Blood Count 4.78 M/mm3 (4.6-6.20); Red Cell Distribution Width 13.4 % (11.5-14.5); White Blood Count 8.4 K/mm3 (4.5-10.0)
[2024-03-20 17:50] LABS: Alanine Aminotransferase 58 U/L (6-50); Albumin Level 4.1 g/dL (3.5-5.1); Alkaline Phosphatase 69 U/L (38-126); Anion Gap 7 mmol/L (4-12); Aspartate Amino Transferase 76 U/L (17-59); Bilirubin,Total 0.6 mg/dL (0.2-1.3); Blood Urea Nitrogen 18 mg/dL (9-20); Carbon Dioxide 26 mmol/L (22-30); Chloride 102 mmol/L (98-107); Estimated CRCL calculation 85 ml/min; Estimated Glomerular Filt Rate > 60; Glucose 197 mg/dL (65-110); Potassium 3.9 mmol/L (3.4-5.0); Sodium 135 mmol/L (137-145)
[2024-03-20 18:23] LABS: Influenza A QL RT-PCR Negative (Negative); Influenza B QL RT-PCR Negative (Negative); RSV RNA, RT-PCR Negative (Negative); SARS-CoV-2 RNA PCR Negative (Negative)
--- NOTE | 2024-03-20 19:11 | ED.SOB ---
HPI - SOB/Dyspnea General Chief Complaint: Shortness of Breath/Dyspnea Stated Complaint: SOB Time Seen by Provider: 03/20/24 18:57 History of Present Illness HPI Narrative: 69-year-old male with history of VARSHA, GERD, hypertension, type 2 diabetes presents to the emergency department via EMS for shortness of breath. Patient presents with his at bedside who assists with history. Patient states he has been short of breath with exertion for multiple months, however over the past week or 2 it has worsened. patient's states he had pus pockets on the back of his throat approximately 1-2 weeks ago. They called his PCP and was prescribed an antibiotic but they do not know the name. States he did not take the antibiotic as directed and has been missing any doses. Patient's believes he took the last dose of his antibiotic today. Patient states he was walking from his living room to his bedroom and became very short of breath. EMS was called and patient was transported here. He denies swelling to his lower extremities, history of VTE. He is reporting a cough but feels like this is unchanged from baseline. states he has had a low-grade fever over the past few days. He denies history of asthma or COPD. He does admit to smoking approximately half pack a day for 10 years but he does not currently smoke. Related Data Home Medications Medication Instructions Recorded Confirmed insulin aspart 15 unit subcut TID 05/15/23 03/21/24 (niacinamide)(U-100) 100 unit/mL(3 mL) subcutaneous pen (Fiasp FlexTouch U-100 Insulin) insulin degludec 200 unit/mL (3 50 unit subcut DAILY 05/15/23 03/21/24 mL) subcutaneous pen (Tresiba FlexTouch U-200 insulin) metformin 500 mg tablet 1,000 mg PO BID 05/15/23 03/21/24 pravastatin 20 mg tablet 10 mg PO QHS 05/15/23 03/21/24 lisinopril 20 1 tablet PO QAM 03/21/24 03/21/24 mg-hydrochlorothiazide 12.5 mg tablet omeprazole 20 mg tablet,delayed 20 mg PO QAM 03/21/24 03/21/24 release trazodone 100 mg tablet 100 mg PO HS 03/21/24 03/21/24 Allergies Allergy/AdvReac Type Severity Reaction Status Date / Time Penicillins AdvReac Mild Rash Verified 03/20/24 17:36 Seroquel AdvReac Mild Dizziness Uncoded 03/20/24 17:36 Review of Systems Review of Systems: CONSTITUTIONAL: Denies fever, chills, or sweats. EYES: Denies visual changes, redness, or discharge. ENT: Denies rhinorrhea, congestion, sore throat, or otalgia. CARDIOVASCULAR: Denies chest pain, palpitations, or edema. RESPIRATORY: see HPI GASTROINTESTINAL: Denies abdominal pain, nausea, vomiting, or diarrhea. GENITOURINARY: Denies dysuria or hematuria. SKIN: Denies rash or itching. MUSCULOSKELETAL: Denies back pain, joint pain, or myalgia. NEUROLOGIC: Denies headache, numbness, or weakness. PSYCHIATRIC: Denies anxiety or depression. [facility] Past Medical History Medical History Acute non-recurrent maxillary sinusitis At low risk for fall BMI 37.0-37.9, adult BMI 38.0-38.9,adult Cellulitis Chronic low back pain with bilateral sciatica X-ray of the lumbar spine on 11/02/2023 reveals severe degenerative disc disease at L5-S1. Colon cancer screening COVID-19 (12/03/20) Dyspnea on exertion exercise stress test was negative for ischemia with poor functional capacity on 05/04/2022. Encounter for prostate cancer screening Ganglion cyst of right foot GERD (gastroesophageal reflux disease) Hypersomnia Metatarsalgia of both feet X-ray of both feet on 05/04/2022 reveals mild osteoarthritis of the 1st MTP joint with small posterior calcaneal heel spurs on the right foot. Mixed hyperlipidemia Total cholesterol 188, triglycerides 95, HDL 56 and LDL 106 on 03/29/2021. cholesterol 161, triglycerides 130, HDL 36, LDL 102 on 03/22/2023. Mood swings Neuropathy Nocturia Paronychia Screening for diabetic retinopathy no diabetic retinopathy 06/07/2023. Snoring Umbilical herni
[2024-03-20 19:26] LABS: Magnesium 2.1 mg/dL (1.6-2.3)
[2024-03-20] MEDS: IPRATROPIUM 0.5 MG/ALBUTEROL SULFATE 2.5 MG AMPUL.NEB 3 ML INHALATION ×3 (19:33→19:37)
[2024-03-20 19:39] LABS: NT Pro B Type Natriuretic Pept < 20 pg/mL (19.9-100); Troponin I < 0.012 ng/mL (0.000-0.034)
[2024-03-20 19:56] LABS: Strep Group A RT-PCR NOT DETECTED (Negative)
[2024-03-20] MEDS: ACETAMINOPHEN 500 MG TABLET 1000 MG PO (20:50)
[2024-03-20 21:22] LABS: Prothrombin Time 14.1 Seconds (11.1-14.7)
[2024-03-20 21:23] LABS: Partial Thromboplastin Time 28.8 Seconds (22.3-36.8)
[2024-03-20 21:26] LABS: D Dimer 0.45 ug/mL (<0.48)
[2024-03-20 23:20] LABS: Fractional Inspired Oxygen 21 %; HCO3 VBG 21.1 mEq/l (24.0-30.0); PCO2 VBG 33.8 mmHg (42.0-48.0); PO2 VBG 58.4 mmHg (35.0-45.0)
[2024-03-20 23:23] LABS: Device ROOM AIR; pH VBG 7.413 (7.300-7.400)
--- NOTE | 2024-03-20 23:42 | PC.NURSE ---
this rn assumed care of patient. this rn took patient report from ERLIN Bernardo.
[2024-03-21] VITALS (19 sets, daily range): BP systolic 121–153; BP diastolic 71–80; PULSE 95–118; RESP 16–20; TEMP 36.2–36.6; O2SAT 95–97
--- NOTE | 2024-03-21 00:13 | ADMGEN ---
This patient, Bryan Serrano, was admitted to Medical Room 250-01. Patient/family oriented to hospital policies and general routines including ID bracelet, bed and alarms, visiting hours, pain management, procedures, bathroom and other care routines, personal items, smoking policy, room service/diet, and visiting hours. Information on how to activate the Rapid Response Team has been discussed. Patient/Family are encouraged to report perceived risks to care and to ask questions if they do not understand what they are told or what they should do.
[2024-03-21] MEDS: IPRATROPIUM 0.5 MG/ALBUTEROL SULFATE 2.5 MG AMPUL.NEB 3 ML INHALATION ×4 (01:38→20:28)
[2024-03-21 08:20] LABS: Glucose Point of Care 313 mg/dl (65-105)
--- NOTE | 2024-03-21 08:47 | PM.IMHP ---
H&P: HPI History of Present Illness Date/Time: 03/21/24 08:47 Chief Complaint: Dyspnea with exerction Narrative: Patient is a 69-year-old male with a past medical history of VARSHA, GERD, hypertension, type 2 diabetes who presented the ED with shortness of breath. Patient stated that he has been having issues with breathing over the last couple years however the last 2 days he has had a really hard time. He stated that he was just lying in bed when he gets short of breath and could not catch his breath. He did call for his however she was in the shower and was able to help him so he called his [id number] called the ambulance to bring to the hospital. He did state for the last couple days he has had a cough with a really thick green sputum that is different from his normal sputum production. He states normally is she is clear. He also stated that recently he was sent a CPAP that was sent male however has not even taken out of the box to to the timing of his current medical condition. He denies any chest pain, nausea, vomiting, diarrhea, constipation, sweats, fevers, chills, lightheadedness, dizziness, wheezes, swelling. In the ED patient was noted to need oxygen. VBG did show respiratory alkalosis. AST ALT elevated upon admission. Hepatitis panel ordered. RSV, flu, COVID, strep all negative. Chest x-ray shows chronic opacities of the left lung base favorable of lingering her atelectasis or scarring over pneumonia. Patient is being admitted to the hospitalist service under observation for workup, recovery, and treatment. Review of Systems Review of Systems: All systems reviewed & are unremarkable except as noted in HPI and below [facility] Past Medical History Medical History Acute non-recurrent maxillary sinusitis Anxiety as acute reaction to exceptional stress At low risk for fall BMI 37.0-37.9, adult BMI 38.0-38.9,adult Cellulitis Chronic pain Colon cancer screening COVID-19 (12/03/20) Dyspnea on exertion exercise stress test was negative for ischemia with poor functional capacity on 05/04/2022. Encounter for prostate cancer screening Erectile dysfunction Ganglion cyst of right foot GERD (gastroesophageal reflux disease) Hypersomnia Insomnia MDD (major depressive disorder), recurrent episode, moderate Metatarsalgia of both feet X-ray of both feet on 05/04/2022 reveals mild osteoarthritis of the 1st MTP joint with small posterior calcaneal heel spurs on the right foot. Mixed hyperlipidemia Total cholesterol 188, triglycerides 95, HDL 56 and LDL 106 on 03/29/2021. cholesterol 161, triglycerides 130, HDL 36, LDL 102 on 03/22/2023. Mood swings Neuropathy Nocturia Obesity (BMI 35.0-39.9 without comorbidity) Paronychia Screening for diabetic retinopathy no diabetic retinopathy 06/07/2023. Snoring Type 2 diabetes mellitus with diabetic polyneuropathy Foot exam 10/17/2022 by member of technical staff. Umbilical hernia Family History Family History (Updated 03/21/24 @ 11:16 by SJ Infante) Father Asbestos pleurisy Social History Social History (Updated 03/21/24 @ 11:19 by SJ Infante) Social History: Patient currently lives with his Aliya. He elects her to be his surrogate. 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 Patient does elect to be a full code. Smoking packs per day: 1 Smoking cigarettes per day: 20.0 Years smoked: 20 Smoking pack-years: 20.00 Smoking status: Former smoker Tobacco type: cigarettes Second hand tobacco smoke exposure: No Smoking end date: 10/01/97 Alcohol intake: never Substance use: current Substance use type: marijuana Other substance usage details: MEDICAL MARIJUANA TO SLEEP Do You Feel Safe in your Home?: Yes Lack of Transportation: No Lack of Food: Never True Current Housing: I Have Housing Concerned About Fut
[2024-03-21] MEDS: predniSONE 20 MG TABLET 60 MG PO (09:07)
[2024-03-21] MEDS: ENOXAPARIN 40 MG/0.4 ML SYRINGE SUB-Q (09:08)
[2024-03-21] MEDS: INSULIN ASPART (*BKC) 100 UNITS/ML 14 UNITS SUB-Q ×3 (09:08→17:38)
[2024-03-21] MEDS: INSULIN ASPART (*BKC) 100 UNITS/ML SUB-Q ×4 (09:09→21:25)
[2024-03-21] MEDS: AZITHROMYCIN 500 MG/NS 250 ML 500 MG/250 ML BAG 250 MG IVPB (09:54)
[2024-03-21 12:06] LABS: Glucose Point of Care 277 mg/dl (65-105)
[2024-03-21 17:11] LABS: Glucose Point of Care 381 mg/dl (65-105)
[2024-03-21] MEDS: INSULIN GLARGINE (*BKC) 100 UNITS/ML 43 UNITS SUB-Q (21:25)
[2024-03-21] MEDS: traZODone HCL 50 MG TABLET 100 MG PO (21:29)
[2024-03-21] MEDS: hydrOXYzine pamoate 25 MG CAPSULE 50 MG PO (21:29)
[2024-03-21] MEDS: PRAVASTATIN SODIUM 10 MG TABLET PO (21:29)
[2024-03-21 21:32] LABS: Glucose Point of Care 268 mg/dl (65-105)
[2024-03-22] VITALS (8 sets, daily range): BP systolic 128–155; BP diastolic 52–75; PULSE 84–110; RESP 16–20; TEMP 36.3–36.8; O2SAT 96–97
[2024-03-22] MEDS: IPRATROPIUM 0.5 MG/ALBUTEROL SULFATE 2.5 MG AMPUL.NEB 3 ML INHALATION ×2 (01:58→09:20)
[2024-03-22 04:55] LABS: Basophils Percent Auto 0.1 % (0.2-1.2); Eosinophils Percent Auto 0.1 % (0-4.4); Hematocrit 41.4 % (42.0-52.0); Hemoglobin 13.7 g/dL (14.0-18.0); Immature Granulocyte Absolute 0.09 K/mm3 (0.00-0.031); Immature Granulocyte Percent A 0.7 % (0-0.5); Lymphocytes Absolute Auto 1.72 K/mm3 (0.9-3.2); Lymphocytes Percent Auto 13.6 % (18.3-44.2); Mean Corpuscular HGB Conc 33.1 g/dl (32-36); Mean Corpuscular Hemoglobin 28.7 pg (26-34); Mean Corpuscular Volume 86.8 fl (80-100); Mean Platelet Volume 8.8 fl (7.4-10.4); Monocytes Absolute Auto 1.2 K/mm3 (0.1-0.6); Monocytes Percent Auto 9.1 % (2.6-8.5); Neutrophils Absolute Auto 9.6 K/mm3 (1.3-6.7); Neutrophils Percent Auto 76.4 % (45.5-73.1); Platelet Count Result 233 k/mm3 (150-375); Red Blood Count 4.77 M/mm3 (4.6-6.20); Red Cell Distribution Width 13.5 % (11.5-14.5); White Blood Count 12.6 K/mm3 (4.5-10.0)
[2024-03-22 05:05] LABS: Alanine Aminotransferase 45 U/L (6-50); Albumin Level 4.1 g/dL (3.5-5.1); Alkaline Phosphatase 65 U/L (38-126); Anion Gap 7 mmol/L (4-12); Aspartate Amino Transferase 39 U/L (17-59); Bilirubin,Total 0.5 mg/dL (0.2-1.3); Blood Urea Nitrogen 23 mg/dL (9-20); Calcium 8.9 mg/dL (8.4-10.2); Carbon Dioxide 25 mmol/L (22-30); Chloride 105 mmol/L (98-107); Estimated CRCL calculation 93 ml/min; Estimated Glomerular Filt Rate > 60; Glucose 196 mg/dL (65-110); Potassium 3.7 mmol/L (3.4-5.0); Sodium 137 mmol/L (137-145)
[2024-03-22 08:22] LABS: Glucose Point of Care 175 mg/dl (65-105)
[2024-03-22] MEDS: INSULIN ASPART (*BKC) 100 UNITS/ML 14 UNITS SUB-Q ×2 (08:34→12:24)
[2024-03-22] MEDS: ENOXAPARIN 40 MG/0.4 ML SYRINGE SUB-Q (08:35)
[2024-03-22] MEDS: lisinopriL 20 MG TABLET PO (08:35)
[2024-03-22] MEDS: predniSONE 20 MG TABLET 60 MG PO (08:35)
[2024-03-22] MEDS: hydroCHLOROthiazide 12.5 MG CAPSULE PO (08:35)
[2024-03-22] MEDS: AZITHROMYCIN 500 MG/NS 250 ML 500 MG/250 ML BAG 250 MG IVPB (10:19)
--- NOTE | 2024-03-22 12:20 | PM.DS ---
DS: Admitting Diagnosis Discharge Date 03/22/24 Admitting Diagnosis Pneumonia with bronchospasm, possible COPD exacerbation DS: Discharge Diagnosis Discharge Diagnosis (1) Pneumonia: Code(s): J18.9 - Pneumonia, unspecified organism Status: Acute (2) COPD exacerbation: Code(s): J44.1 - Chronic obstructive pulmonary disease with (acute) exacerbation Status: Acute (3) Dyspnea on exertion: Code(s): R06.09 - Other forms of dyspnea Status: Acute (4) Type 2 diabetes mellitus with hyperglycemia: Qualifiers: Diabetes mellitus half-way insulin use: without intermodal owner operator truck driver use Qualified Code(s): E11.65 - Type 2 diabetes mellitus with hyperglycemia Code(s): E11.65 - Type 2 diabetes mellitus with hyperglycemia Status: Acute (5) Essential (primary) hypertension: Code(s): I10 - Essential (primary) hypertension Status: Acute (6) Mixed hyperlipidemia: Code(s): E78.2 - Mixed hyperlipidemia Status: Acute (7) VARSHA (obstructive sleep apnea): Onset Date: ~02/12/24 Code(s): G47.33 - Obstructive sleep apnea (adult) (pediatric) Status: Acute (8) Chronic pain: Qualifiers: Chronic pain type: chronic pain syndrome Qualified Code(s): G89.4 - Chronic pain syndrome Code(s): G89.29 - Other chronic pain Status: Acute DS: Summary Hospital Course Hospital Course: Patient is a 69-year-old male who presented emergency room for shortness of breath, sputum production, wheezing with oxygen requirement. Chest x-ray revealed chronic opacities in the left lung base. D-dimer negative, PE less likely. No lower extremity swelling or erythema. VBG with very slight elevated pH, low Co2 and elevated o2. White blood cell count initially elevated but trended down (but did increase with the prednisone). Pt was started on steroids, breathing tx and abx. He had significant improvement. He does has intermitted tachycardia (chronic) worsened with albuterol. Day of discharge pt was walking the halls with no MCCANN, SOB, CP, or complaints. He says he is significantly improved. He has no hx of COPD dx and I recommend he follow up with his pcp for repeat cxr and PFTs (once well) to see if he does have COPD underlying. Will discharge with albuterol PRN, abx, and steroids as I suspect he did have PNA and may have COPD vs bronchospasm. Pt has a f/u with his pcp in a few weeks. Pt to continue home medications. We discussed the worrisome signs and symptoms to come back to the emergency room for and patient agreed and was discharged in stable condition. Status at Discharge Cognitive/behavioral status at discharge: Stable Time Spent with Patient Time attestation: Total time spent providing and/or coordinating discharge services: 35 Time spent: Greater than 30 minutes Exam Narrative: General: Well developed well nourished patient in NAD HEENT: normocephalic Neck: supple Neuro: Alert and oriented x4 CV:RRR Resp: Slight wheezing in the left lower lobe, all other areas clear to auscultation Abd: Soft, non distended. No pain to palpation. Positive bowel sounds Extremities: No swelling, erythema, or pain to palpation. DS: Data Data Completed and Pending Labs on day of discharge: Labs from last 24 hours 03/22/24 03/22/24 03/21/24 08:19 04:24 21:24 WBC 12.6 H RBC 4.77 Hgb 13.7 L Hct 41.4 L MCV 86.8 MCH 28.7 MCHC 33.1 RDW 13.5 Plt Count 233 MPV 8.8 Immature Gran % (Auto) 0.7 H Neut % (Auto) 76.4 H Lymph % (Auto) 13.6 L [place] % (Auto) 9.1 H Eos % (Auto) 0.1 Baso % (Auto) 0.1 L Lymph # (Auto) 1.72 [place] # (Auto) 1.2 H Eos # (Auto) 0.0 Baso # (Auto) 0.0 Abs Immat Gran (auto) 0.09 H Absolute Neuts (auto) 9.6 H Absolute Nucleated RBC 0.000 Nucleated RBC % 0.0 Sodium 137 Potassium 3.7 Chloride 105 Carbon Dioxide 25 Anion Gap 7 BUN 23 H Cre
[2024-03-22] MEDS: INSULIN ASPART (*BKC) 100 UNITS/ML SUB-Q (12:24)
[2024-03-22 12:42] LABS: Glucose Point of Care 235 mg/dl (65-105)
== END 2024-03-22 12:56 | disposition home or self-care (01) ==
LOC: ANHED 22:58 → ANH2MED 03-21 14:09
PROVIDERS: Emergency Medicine; Nurse Practitioner; Admitting Provider Internal Medicine; Emergency Provider Physician Assistant; PCP Family Medicine; Visit Provider Physician Assistant
DX: J44.1 Chronic obstructive pulmonary disease with (acute) exacerbation (principal); J18.9 Pneumonia, unspecified organism; G47.33 Obstructive sleep apnea (adult) (pediatric); K21.9 Gastro-esophageal reflux disease without esophagitis; I10 Essential (primary) hypertension; Z79.4 Long term (current) use of insulin; E11.65 Type 2 diabetes mellitus with hyperglycemia; Z87.891 Personal history of nicotine dependence; E66.9 Obesity, unspecified; Z68.41 Body mass index [BMI] 40.0-44.9, adult; E78.2 Mixed hyperlipidemia; G89.4 Chronic pain syndrome; Z20.822 Contact with and (suspected) exposure to COVID-19
CPT/HCPCS: 36415; 71046; 80053; 82803; 82948; 83735; 83880; 84484; 85025; 85380; 85610; 85730; 87637; 87651; 93005; 94640; 96365; 96367; 96372; 96376; 99285; A9270; G0378; J0456; J0696; J1650; J1815; J7512

== ENCOUNTER 2024-05-29 10:18 | Outpatient (CLI) | payer MEDICARE, SELFPAY ==
--- NOTE | 2024-05-29 12:22 | WPDPFTINT ---
PFT Procedure Performed PFT Procedure Performed Spirometry with Pre/Post Bronchodilator Plethysmography (Lung Vol) Diffusing Cap (DLCO) Flow Vol Loop PFT Interpretation This is a pulmonary function test with pre and post-bronchodilator spirometry, plethysmography and diffusing capacity. The test was performed and results interpreted in accordance with the 2019 and 2005 ATS/ERS Task Force guidelines respectively using the Global Lung Function Initiative-2012 reference equations. Patient demonstrated good effort and cooperation. Reproducibility criteria were met. The quality of the pre bronchodilator spirometry maneuver was Grade B and post bronchodilator spirometry maneuver was Grade B. Findings: Spirometry: There is decreased maximal expiratory airflow at all lung volumes with concave expiratory flow tracing. The contour the inspiratory flow tracing is normal. The pre bronchodilator FVC is 3.90 L, 79% predicted. The pre bronchodilator FEV1 is 2.22 L, 60% predicted. The pre bronchodilator FEV1: FVC ratio is 57%. The post bronchodilator FVC is 4.17 L, representing a 7% increase. The post bronchodilator FEV1 is 2.39 L, representing an 8% increase. The post bronchodilator FEV1: FVC ratio is 57%. Plethysmography: The total lung capacity is 7.49 L, 96% predicted. The functional residual capacity is 3.65 L, 87% predicted. The residual volume is 3.58 L, 136% predicted. The residual volume: Total lung capacity ratio is 48%. Diffusing capacity: The diffusing capacity unadjusted for hemoglobin and carboxyhemoglobin is 22.8, 81% predicted. The diffusing capacity adjusted for alveolar volume is 3.80, 101% predicted. Impression: There is a moderate obstructive abnormality. There is no significant improvement after inhaling a single dose of albuterol. The increase in residual volume to total lung volume ratio is consistent with hyperinflation from an obstructive abnormality. The diffusing capacity is normal. There are no prior studies for comparison
== END 2024-05-29 10:19 | disposition home or self-care (01) ==
PROVIDERS: PCP Family Medicine; Visit Provider Nurse Practitioner Family
DX: R06.09 Other forms of dyspnea (principal); J44.9 Chronic obstructive pulmonary disease, unspecified
CPT/HCPCS: 94060; 94726; 94729

== ENCOUNTER 2024-06-13 09:52 | Outpatient (CLI) | payer MEDICARE, SELFPAY ==
--- NOTE | ~2024-06-13 | XR_ITS ---
EXAMINATION: XR shoulder LT min 2V DATE: 06/13/2024 10:11 INDICATION: Left shoulder pain TECHNIQUE: AP internally and externally rotated, AP oblique externally rotated and transscapular Y vi ews of the left shoulder were obtained. COMPARISON: None FINDINGS: Normal alignment. No fracture.Mild left glenohumeral and acromioclavicular osteoarthritis. Small sub acromial spur. Soft tissues are unremarkable. Visualized portion of the lungs are clear. IMPRESSION: Mild left glenohumeral and acromioclavicular osteoarthritis. Reviewed, dictated and finalized at location B.
== END 2024-06-13 09:53 | disposition home or self-care (01) ==
LOC: ANHIMG 09:55
PROVIDERS: PCP Family Medicine; Visit Provider Family Medicine
DX: M19.012 Primary osteoarthritis, left shoulder (principal)
CPT/HCPCS: 73030